=== PATIENT | male | born 1970 | race Caucasian/White ===

== ENCOUNTER 2017-10-12 22:31 | Emergency (ER) | payer MEDICAID ==
[~2017-10-12] VITALS: Ht 193 cm; Wt 85.2 kg
[~2017-10-12 22:31] MED LIST: CEPH500C5 PO
[2017-10-12] MEDS ORDERED: triamcinolone acetonide 40mg/ml inj IM ONE (23:40)
[2017-10-12] MEDS ORDERED: HYDR28CR14 TOP (23:42)
[2017-10-13 00:04] VITALS: BP 132/82
== END 2017-10-13 00:05 | disposition home or self-care (01) ==
LOC: ER 22:32
DX: L23.7 Allergic contact dermatitis due to plants, except food (principal); J45.909 Unspecified asthma, uncomplicated; G89.29 Other chronic pain; M54.9 Dorsalgia, unspecified; Z88.8 Allergy status to other drugs, medicaments and biological substances
CPT/HCPCS: 96372; 99283; J3301

== ENCOUNTER 2018-01-17 02:04 | Emergency (ER) | payer MEDICAID ==
[~2018-01-17] VITALS: Ht 182.9 cm; Wt 79.4 kg
[~2018-01-17 02:04] MED LIST changes: +HYDR28CR14 TOP
[2018-01-17 02:33] VITALS: BP 131/70
[2018-01-17] MEDS ORDERED: HYDROcodone/acetaminophen 10/325mg tab PO ONE (02:45)
[2018-01-17] MEDS ORDERED: cephalexin 250mg capsule PO ONE (02:45)
[2018-01-17] MEDS ORDERED: sulfamethoxazole/trimethoprim DS (800/160mg) tablet PO ONE (02:45)
[2018-01-17] MEDS ORDERED: CEPH500C5 PO (02:48)
[2018-01-17] MEDS ORDERED: IBUP-1984 PO (02:48)
[2018-01-17] MEDS ORDERED: SULF1TAB49 PO (02:48)
[2018-01-17] MEDS ORDERED: HYDR-3965 PO (02:48)
== END 2018-01-17 03:17 | disposition home or self-care (01) ==
LOC: ER 02:04
DX: L03.114 Cellulitis of left upper limb (principal); G89.29 Other chronic pain; J45.909 Unspecified asthma, uncomplicated; Z86.14 Personal history of Methicillin resistant Staphylococcus aureus infection; F17.200 Nicotine dependence, unspecified, uncomplicated; Z88.8 Allergy status to other drugs, medicaments and biological substances
CPT/HCPCS: 99284

== ENCOUNTER 2018-04-02 19:44 | Emergency (ER) | payer MEDICAID ==
[~2018-04-02] VITALS: Ht 182.9 cm; Wt 74.0 kg
[2018-04-02] MEDS ORDERED: IBUP-1984 PO (21:49)
[2018-04-02 22:00] VITALS: BP 108/67
== END 2018-04-02 22:01 | disposition home or self-care (01) ==
LOC: ER 19:45
DX: R10.33 Periumbilical pain (principal); J45.909 Unspecified asthma, uncomplicated; G89.29 Other chronic pain; M54.9 Dorsalgia, unspecified; Z98.890 Other specified postprocedural states; Z88.8 Allergy status to other drugs, medicaments and biological substances; Z86.14 Personal history of Methicillin resistant Staphylococcus aureus infection
CPT/HCPCS: 99283

== ENCOUNTER 2018-04-11 14:29 | Emergency (ER) | payer MEDICAID ==
[~2018-04-11] VITALS: Ht 188 cm; Wt 74.5 kg
[~2018-04-11 14:29] MED LIST changes: +IBUP-1984 PO
[2018-04-11 14:38] VITALS: BP 103/71
[2018-04-11] MEDS ORDERED: METH4TAB3 PO (15:06)
== END 2018-04-11 15:13 | disposition home or self-care (01) ==
LOC: ER 14:29
DX: L23.7 Allergic contact dermatitis due to plants, except food (principal); G89.29 Other chronic pain; J45.909 Unspecified asthma, uncomplicated; Z86.14 Personal history of Methicillin resistant Staphylococcus aureus infection; Z88.8 Allergy status to other drugs, medicaments and biological substances; Z79.899 Other long term (current) drug therapy
CPT/HCPCS: 99283

== ENCOUNTER 2018-08-09 23:52 | Emergency (ER) | payer MEDICAID ==
[~2018-08-09] VITALS: Ht 167.6 cm; Wt 75.0 kg
[~2018-08-09 23:52] MED LIST changes: -IBUP-1984 PO; +METH4TAB3 PO
[2018-08-09 23:53] VITALS: BP 146/95
== END 2018-08-10 01:30 | disposition left against medical advice (07) ==
LOC: ER 23:52
DX: J34.89 Other specified disorders of nose and nasal sinuses (principal); Z53.21 Procedure and treatment not carried out due to patient leaving prior to being seen by health care provider

== ENCOUNTER 2022-07-13 17:00 | Emergency (ER) | payer MEDICAID ==
[~2022-07-13] VITALS: Ht 182.9 cm; Wt 82.0 kg
[~2022-07-13 17:00] MED LIST changes: -CEPH500C5 PO
[2022-07-13 17:20] VITALS: BP 150/81
[2022-07-13] MEDS ORDERED: proparacaine 0.5% ophthalmic drops 15ml EACHEYE ONE (18:05)
[2022-07-13] MEDS ORDERED: tropicamide 0.5% ophth drops 15ml bottle EACHEYE ONE (18:30)
[2022-07-13] MEDS ORDERED: erythromycin ophthalmic ointment 1gm tube EACHEYE ONE (18:30)
[2022-07-13] MEDS ORDERED: ERYT1OIN6 EACHEYE (18:51)
[2022-07-13] MEDS ORDERED: HYDR-3965 PO (18:51)
== END 2022-07-13 19:15 | disposition home or self-care (01) ==
LOC: ER 17:00
DX: H20.9 Unspecified iridocyclitis (principal); H16.133 Photokeratitis, bilateral; H57.13 Ocular pain, bilateral; J45.909 Unspecified asthma, uncomplicated; G89.29 Other chronic pain; Z86.14 Personal history of Methicillin resistant Staphylococcus aureus infection; Z98.890 Other specified postprocedural states; Z60.2 Problems related to living alone; Z88.8 Allergy status to other drugs, medicaments and biological substances; Z79.899 Other long term (current) drug therapy
CPT/HCPCS: 99283

== ENCOUNTER 2022-12-19 03:09 | Emergency (ER) | payer MEDICAID ==
[~2022-12-19] VITALS: Ht 182.9 cm; Wt 90.9 kg
[2022-12-19 03:14] VITALS: BP 135/86
[2022-12-19] MEDS ORDERED: predniSONE 20 mg tablet PO ONE (04:50)
[2022-12-19] MEDS ORDERED: PRED10TA23 PO (04:50)
== END 2022-12-19 05:16 | disposition home or self-care (01) ==
LOC: ER 03:10
DX: L23.7 Allergic contact dermatitis due to plants, except food (principal); J45.909 Unspecified asthma, uncomplicated; G89.29 Other chronic pain; Z86.14 Personal history of Methicillin resistant Staphylococcus aureus infection; Z60.2 Problems related to living alone; Z79.899 Other long term (current) drug therapy
CPT/HCPCS: 99283; J7512

== ENCOUNTER 2023-04-25 11:31 | Emergency (ER) | payer MEDICAID ==
[~2023-04-25] VITALS: Ht 188 cm; Wt 83.8 kg
[2023-04-25 12:04] VITALS: BP 144/82; PULSE 100; RESP 18; O2SAT 99
== END 2023-04-25 14:24 | disposition left against medical advice (07) ==
LOC: ER 11:32
DX: K08.89 Other specified disorders of teeth and supporting structures (principal); Z53.21 Procedure and treatment not carried out due to patient leaving prior to being seen by health care provider
CPT/HCPCS: 99281